=== PATIENT | female | born 1955 | race Asian ===

== ENCOUNTER 2017-03-08 11:07 | Emergency (ER) | payer MEDICAID ==
[~2017-03-08] VITALS: Ht 157.5 cm; Wt 50.0 kg
[2017-03-08] MEDS ORDERED: WARF2TAB55 PO (11:16)
[2017-03-08] MEDS ORDERED: ACETAMINOPHEN WITH CODEINE 300/30MG TABLET PO ONE (11:30)
[2017-03-08 14:28] VITALS: BP 129/60
== END 2017-03-08 15:14 | disposition home or self-care (01) ==
LOC: ER 11:24
DX: S93.402A Sprain of unspecified ligament of left ankle, initial encounter (principal); E11.9 Type 2 diabetes mellitus without complications; I69.354 Hemiplegia and hemiparesis following cerebral infarction affecting left non-dominant side; Z79.01 Long term (current) use of anticoagulants; Z88.0 Allergy status to penicillin; Z90.81 Acquired absence of spleen; W19.XXXA Unspecified fall, initial encounter; Y93.89 Activity, other specified; Y99.8 Other external cause status; Y92.89 Other specified places as the place of occurrence of the external cause
CPT/HCPCS: 29515; 73502; 73610; 99284; Z7610